=== PATIENT | female | born 1950 | race Caucasian/White ===

== ENCOUNTER → 2016-12-28 | Outpatient (CLI) | payer OTHER, MEDICAID ==
[~2016-12-28] MED LIST: ABILIFY PO; EFFE150C PO; EFFEXOR XR PO; LAMI200T3 PO; PRIL20CA9 PO
[2016-12-28 10:22] LABS: ALBUMIN 3.1 GM/DL (3.2-5.2); ALBUMIN/GLOBULIN RATIO 1.03 (1.00-1.93); ALKALINE PHOSPHATASE 150 U/L (45-117); ALT/SGPT 11 U/L (12-78); ANION GAP 8 MEQ/L (8-16); AST/SGOT 9 U/L (15-37); BILIRUBIN,TOTAL 0.1 MG/DL (0.2-1.0); BLOOD UREA NITROGEN 6 MG/DL (7-18); CALCIUM LEVEL 8.5 MG/DL (8.8-10.2); CARBON DIOXIDE LEVEL 29 MEQ/L (21-32); CHLORIDE LEVEL 104 MEQ/L (98-107); CHOLESTEROL LEVEL 231 MG/DL (<200); CREATININE FOR GFR 0.77 MG/DL (0.55-1.02); GLOMERULAR FILTRATION RATE > 60.0 (>45); GLUCOSE, FASTING 76 MG/DL (80-110); POTASSIUM SERUM 3.6 MEQ/L (3.5-5.1); SODIUM LEVEL 141 MEQ/L (136-145); TOTAL PROTEIN 6.1 GM/DL (6.4-8.2); TRIGLYCERIDES LEVEL 335 MG/DL (<150)
== END ==
LOC: M LAB 09:07
PROVIDERS: ATTEND Family Medicine Addiction Medicine
DX: E78.5 Hyperlipidemia, unspecified (principal)

== ENCOUNTER → 2017-03-12 | Outpatient (CLI) | payer MEDICARE, MEDICAID ==
[~2017-03-12] VITALS: Ht 154.9 cm; Wt 73.9 kg
[~2017-03-12] MED LIST changes: +ABIL15TA2 PO; +FISH1000 PO; +LIDOCAINE 2% INJ 100 MG/5 ML SDV (FOR ANES.) As Ordered ONE; +MELO15TA4 PO; +NS 1,000 ML IV SCH; +OMEP40CA2 PO; +PRIM250T5 PO; +PRIM50TA6 PO; +PROPOFOL 500 MG/50 ML VIAL As Ordered ONE; +RISP2TAB30 PO; +RISP4TAB33 PO; +VENL150C43 PO; +VITA100072 PO; +VITA2000 PO
--- NOTE | 2017-03-12 09:33 | ROOR ---
Patient Name: Alissa Gray Procedure Date: 03/12/2017 9:13 AM Date of : 1950 Age: 66 Room: [facility] Gender: Female Note Status: Finalized Procedure: Colonoscopy Indications: Screening for colorectal malignant neoplasm Providers: Orlando PLASCENCIA MD Referring MD: Niko CUETO MD Requesting Provider: Medicines: Monitored Anesthesia Care Complications: No immediate complications. Procedure: Pre-Anesthesia Assessment: - The heart rate, respiratory rate, oxygen saturations, blood pressure, adequacy of pulmonary ventilation, and response to care were monitored throughout the procedure. The Colonoscope was introduced through the anus and advanced to the cecum, identified by appendiceal orifice and ileocecal valve. The colonoscopy was performed without difficulty. The patient tolerated the procedure well. The quality of the bowel preparation was good. Findings: The perianal and digital rectal examinations were normal. A 4 mm polyp was found in the rectum. The polyp was sessile. The polyp was removed with a cold snare. Resection and retrieval were complete. Small Internal Hemorrhoids. The exam was otherwise without abnormality on direct and retroflexion views. Impression: - One 4 mm polyp in the rectum, removed with a cold snare. Resected and retrieved. - Small Internal Hemorrhoids. - The examination was otherwise normal on direct and retroflexion views. Recommendation: - Telephone endoscopist for pathology results in 2 weeks. - If the pathology report reveals adenomatous tissue, then repeat the colonoscopy for surveillance in 3 - 5 years. Orlando Plascencia MD Orlando PLASCENCIA MD 03/12/2017 9:33:10 AM This report has been signed electronically. Number of Addenda: 0 Note Initiated On: 03/12/2017 9:13 AM Estimated Blood Loss: Estimated blood loss: none.
[2017-03-12 09:36] VITALS: BP 106/67
== END | disposition home or self-care (01) ==
LOC: M OPP 08:24
PROVIDERS: ATTEND Internal Medicine Gastroenterology
DX: Z12.11 Encounter for screening for malignant neoplasm of colon (principal); D12.8 Benign neoplasm of rectum; K64.8 Other hemorrhoids; R12 Heartburn; F31.9 Bipolar disorder, unspecified; F41.9 Anxiety disorder, unspecified; Z78.0 Asymptomatic menopausal state; G47.8 Other sleep disorders; F17.210 Nicotine dependence, cigarettes, uncomplicated; Z88.8 Allergy status to other drugs, medicaments and biological substances; Z88.0 Allergy status to penicillin; Z79.899 Other long term (current) drug therapy; Z80.3 Family history of malignant neoplasm of breast

== ENCOUNTER 2017-05-03 09:00 | Outpatient (RCR) | payer MEDICARE ==
[~2017-05-03 09:00] MED LIST changes: -ABIL15TA2 PO; +ABIL1TAB12 PO; +LAMI1TAB9 PO; -LAMI200T3 PO; -LIDOCAINE 2% INJ 100 MG/5 ML SDV (FOR ANES.) As Ordered ONE; -NS 1,000 ML IV SCH; -PRIM250T5 PO; +PRIM250T8 PO; -PROPOFOL 500 MG/50 ML VIAL As Ordered ONE; -RISP2TAB30 PO; +RISP2TAB32 PO
== END 2017-05-07 ==
LOC: M PT 09:00
PROVIDERS: ATTEND Family Medicine Addiction Medicine
DX: Z51.89 Encounter for other specified aftercare (principal); M72.2 Plantar fascial fibromatosis
CPT/HCPCS: 97035; 97110; 97161; G8978; G8980

== ENCOUNTER 2017-06-01 08:19 | Outpatient (RCR) | payer MEDICARE | END 2017-06-07 | LOC: M PT 08:19 | PROVIDERS: ATTEND Family Medicine Addiction Medicine | DX: Z51.89 Encounter for other specified aftercare (principal); M72.2 Plantar fascial fibromatosis | CPT/HCPCS: 97035; 97110; G8978; G8979 ==

== ENCOUNTER 2017-07-06 08:39 | Outpatient (RCR) | payer MEDICARE | END 2017-07-07 | LOC: M PT 08:39 | PROVIDERS: ATTEND Family Medicine Addiction Medicine | DX: Z51.89 Encounter for other specified aftercare (principal); M72.2 Plantar fascial fibromatosis ==

== ENCOUNTER → 2017-07-11 | Outpatient (REF) | payer MEDICARE ==
[2017-07-11 18:47] LABS: BASO % 0.4 % (0.0-1.0); EOS # 0.1 10^3/uL (0.0-0.50); EOS % 1.4 % (0.0-3.0); IMMATURE GRANULOCYTE % 0.3 % (0-0); LYMPH # 3.2 10^3/uL (1.5-4.5); LYMPH % 43.4 % (24.0-44.0); MEAN CORPUSCULAR HEMOGLOBIN 24.8 pg (27.0-33.0); MEAN CORPUSCULAR HGB CONC 30.3 g/dl (32.0-36.5); MEAN CORPUSCULAR VOLUME 81.9 fl (80.0-96.0); MONO # 0.5 10^3/uL (0.0-0.8); MONO % 6.5 % (0.0-5.0); NEUTROPHILS # 3.5 10^3/uL (1.8-7.7); PLATELET COUNT, AUTOMATED 414 10^3/uL (150-450); RED CELL DISTRIBUTION WIDTH 17.1 % (11.5-14.5); WHITE BLOOD COUNT 7.4 10^3/uL (4.0-10.0)
[2017-07-11 18:59] LABS: ADD MORPHOLOGY? NO
[2017-07-11 19:47] LABS: ALBUMIN 3.5 GM/DL (3.2-5.2); ALBUMIN/GLOBULIN RATIO 0.97 (1.00-1.93); ALKALINE PHOSPHATASE 122 U/L (45-117); ALT/SGPT 22 U/L (12-78); ANION GAP 11 MEQ/L (8-16); AST/SGOT 14 U/L (15-37); BILIRUBIN,TOTAL 0.2 MG/DL (0.2-1.0); BLOOD UREA NITROGEN 5 MG/DL (7-18); CALCIUM LEVEL 9.5 MG/DL (8.8-10.2); CARBON DIOXIDE LEVEL 23 MEQ/L (21-32); CHLORIDE LEVEL 104 MEQ/L (98-107); CREATININE FOR GFR 0.88 MG/DL (0.55-1.02); GLOMERULAR FILTRATION RATE > 60.0 (>45); GLUCOSE, FASTING 91 MG/DL (80-110); POTASSIUM SERUM 4.1 MEQ/L (3.5-5.1); SODIUM LEVEL 138 MEQ/L (136-145); TOTAL PROTEIN 7.1 GM/DL (6.4-8.2)
[2017-07-11 19:56] LABS: VITAMIN B12 LEVEL 1194 PG/ML (247-911)
[2017-07-11 19:58] LABS: FOLATE 16.2 NG/ML (>5.4)
[2017-07-14 00:07] LABS: PHENOBARBITAL (PRIMIDONE) 10 ug/mL (15-40)
== END ==
LOC: M LABNEURO 11:22
PROVIDERS: ATTEND Psychiatry & Neurology Neurology
DX: G43.009 Migraine without aura, not intractable, without status migrainosus (principal); G21.11 Neuroleptic induced parkinsonism

== ENCOUNTER 2017-07-20 09:51 | Outpatient (RCR) | payer MEDICARE | END 2017-08-07 | LOC: M PT 09:51 | PROVIDERS: ATTEND Family Medicine Addiction Medicine | DX: Z51.89 Encounter for other specified aftercare (principal); M72.2 Plantar fascial fibromatosis | CPT/HCPCS: 97035; 97110; G8978; G8979; G8980 ==

== ENCOUNTER → 2018-04-18 | Outpatient (REF) | payer MEDICARE ==
[2018-04-18 17:56] LABS: MAGNESIUM LEVEL 2.2 MG/DL (1.8-2.4)
== END ==
LOC: M LABNEURO 12:52
DX: E83.42 Hypomagnesemia (principal)
CPT/HCPCS: 83735

== ENCOUNTER → 2018-05-08 | Outpatient (CLI) | payer MEDICARE | LOC: M RAD 13:17 | DX: N60.31 Fibrosclerosis of right breast (principal) | CPT/HCPCS: 77066 ==